=== PATIENT | female | born 1975 | race Caucasian/White ===

== ENCOUNTER 2022-06-28 16:49 | Emergency (ER) | payer BC ==
[2022-06-28] MEDS ORDERED: Lorazepam 2 MG/ML VIAL ONE ×2 (17:29→19:51)
[2022-06-28] MEDS ORDERED: Ondansetron PF 4 MG/2 ML Vial ONE (17:29)
[2022-06-28 17:45] LABS: #Basophils 0.1 10x3/uL (0.0-0.2); #Eosinphils 0.7 10x3/uL (0.0-0.5); #Monocytes 0.5 10x3/uL (0.0-1.1); #Neutrophils 6.9 10x3/uL (1.5-8.4); %Basophils 0.6 % (0.0-2.0); %Eosinophils 7.5 % (0.0-6.0); %Lymphocytes 15.5 % (18.0-47.0); %Monocytes 5.2 % (0.0-10.0); %Neutrophils 70.8 % (40.0-75.0); Hemoglobin 14.5 g/dL (12.0-15.5); Mean Corpuscular HGB CONC 33.2 g/dL (32.0-36.0); Mean Corpuscular Hemoglobin 29.3 pg (27.0-33.0); Mean Corpuscular Volume 88.3 fl (81.6-98.3); Mean Platelet Volume 10.2 fl (7.4-10.4); Platelet Count 311 10x3/uL (150-450); RBC Distribution Width 13.2 % (11.5-14.5); Red Blood Cell (RBC) Count 4.95 10x6/uL (3.90-5.03); White Blood Cell (WBC) Count 9.7 10x3/uL (3.5-10.5)
[2022-06-28 18:03] LABS: ALT (SGPT) 23 U/L (8-55); AST (SGOT) 30 U/L (5-34); Albumin 4.1 g/dL (3.5-5.0); Alkaline Phosphatase 64 U/L (40-110); Anion Gap 17 mmol/L (10-20); BUN (Urea Nitrogen) 16 mg/dL (7.0-18.7); Bilirubin, Total 0.4 mg/dL (0.2-1.2); Calc. Creatinine Clearance 0 mL/min (70-130); Calcium 9.6 mg/dL (7.8-10.44); Carbon Dioxide 22 mmol/L (22-29); Chloride 102 mmol/L (98-107); Estimated GFR 101; Globulin 4.6 g/dL (2.4-3.5); Glucose 269 mg/dL (70-105); Magnesium 1.7 mg/dL (1.6-2.6); Potassium 4.8 mmol/L (3.5-5.1); Protein, Total 8.7 g/dL (6.0-8.3); Sodium 136 mmol/L (136-145)
[2022-06-28 20:30] LABS: Troponin I Less than 0.010 ng/mL (< 0.028)
== END 2022-06-28 20:42 | disposition home or self-care (01) ==
LOC: CSHERS 16:49
DX: R00.2 Palpitations (principal); E11.9 Type 2 diabetes mellitus without complications
CPT/HCPCS: 36415; 36416; 71045; 80053; 83735; 84443; 84484; 85025; 85379; 93005; 96361; 96374; 96375; 96376; J2060; J2405

== ENCOUNTER 2022-12-30 15:25 | Emergency (ER) | payer BC ==
[2022-12-30] MEDS ORDERED: Ondansetron ODT 4 MG TAB ONE (15:47)
[2022-12-30 17:27] LABS: ALT (SGPT) 52 U/L (8-55); AST (SGOT) 43 U/L (5-34); Albumin 4.7 g/dL (3.5-5.0); Alkaline Phosphatase 58 U/L (40-110); Anion Gap 19 mmol/L (10-20); BUN (Urea Nitrogen) 15 mg/dL (7.0-18.7); Bilirubin, Total 0.9 mg/dL (0.2-1.2); Calc. Creatinine Clearance 0 mL/min (70-130); Calcium 9.3 mg/dL (7.8-10.44); Carbon Dioxide 22 mmol/L (22-29); Chloride 98 mmol/L (98-107); Estimated GFR 93; Globulin 4.4 g/dL (2.4-3.5); Glucose 243 mg/dL (70-105); Lipase 14 U/L (8-78); Magnesium 1.8 mg/dL (1.6-2.6); Potassium 3.8 mmol/L (3.5-5.1); Protein, Total 9.1 g/dL (6.0-8.3); Sodium 135 mmol/L (136-145)
[2022-12-30 17:30] LABS: #Monocytes 0.3 10x3/uL (0.0-1.1); #Neutrophils 8.8 10x3/uL (1.5-8.4); %Basophils 0.4 % (0.0-2.0); %Eosinophils 0.1 % (0.0-6.0); %Lymphocytes 10.1 % (18.0-47.0); %Monocytes 2.5 % (0.0-10.0); %Neutrophils 86.5 % (40.0-75.0); Hematocrit 47.9 % (34.9-44.5); Mean Corpuscular HGB CONC 33.4 g/dL (32.0-36.0); Mean Corpuscular Hemoglobin 29.3 pg (27.0-33.0); Mean Corpuscular Volume 87.6 fl (81.6-98.3); Platelet Count 292 10x3/uL (150-450); RBC Distribution Width 12.9 % (11.5-14.5); Red Blood Cell (RBC) Count 5.47 10x6/uL (3.90-5.03); White Blood Cell (WBC) Count 10.2 10x3/uL (3.5-10.5)
[2022-12-30] MEDS ORDERED: Metoclopramide HCl 10 MG/2 ML VIAL ONE (17:57)
[2022-12-30 18:08] LABS: SARS-CoV-2 NAA Rapid Test Not Detected (NotDetected)
[2022-12-30 18:16] LABS: Bilirubin Neg (Negative); Blood, Urine Negative (Negative); Clarity Clear (Clear); Glucose, Urine (Dipstick) 250 mg/dL (Negative); Ketone, Urine 150 mg/dL (Negative); Leukocyte Negative (Negative); Nitrite Negative (Negative); Protein, Urine (Dipstick) 30 mg/dl (Neg-Trace); Urobilinogen Normal mg/dL (Less than 2)
[2022-12-30 18:18] LABS: Pregnancy Test - Urine (BHCG) Negative (Negative); Pregu Control Background? CLEAR/WHITE (CLR/WHITE); Pregu Control Bar Appear? YES (CONTROL BAR)
[2022-12-30 18:24] LABS: CAUTI Indications for Culture Pelvic or flank pain; Mucous/LPF 2+ LPF (<2+); RBC/HPF None Seen HPF (0-3); WBC/HPF 0-3 HPF (0-3)
[2022-12-30 18:25] LABS: Bacteria/HPF Rare-Few HPF (None Seen)
[2022-12-30 18:27] LABS: Urine Culture Reflex No No
[2022-12-30 19:51] LABS: Lactic Acid 1.5 mmol/L (0.5-2.2)
== END 2022-12-30 20:14 | disposition home or self-care (01) ==
LOC: CSHERS 15:25
DX: A08.4 Viral intestinal infection, unspecified (principal); E86.0 Dehydration; E11.9 Type 2 diabetes mellitus without complications; Z20.822 Contact with and (suspected) exposure to COVID-19
CPT/HCPCS: 36415; 80053; 81001; 81025; 83605; 83690; 83735; 85025; 96361; 96365; J2765; Q0162

== ENCOUNTER 2024-12-04 08:30 | Emergency (ER) | payer BC ==
[2024-12-04 09:07] LABS: #Basophils 0.05 10x3/uL (0.0-0.2); #Eosinophils 0.12 10x3/uL (0.0-0.5); #Monocytes 0.69 10x3/uL (0.0-1.1); #Neutrophils 4.81 10x3/uL (1.5-8.4); %Basophils 0.7 % (0.0-2.0); %Eosinophils 1.7 % (0.0-6.0); %Lymphocytes 20.0 % (18.0-47.0); %Monocytes 9.7 % (0.0-10.0); %Neutrophils 67.6 % (40.0-75.0); Hematocrit 40.7 % (34.9-44.5); Hemoglobin 13.3 g/dL (12.0-15.5); Mean Corpuscular Hemoglobin 30.0 pg (27.0-33.0); Mean Corpuscular Volume 91.9 fL (81.6-98.3); Platelet Count 196 10x3/uL (150-450); Red Blood Cell (RBC) Count 4.43 10x6/uL (3.90-5.03); White Blood Cell (WBC) Count 7.11 10x3/uL (3.5-10.5)
[2024-12-04 09:28] LABS: ALT (SGPT) 782 U/L (Less than 34); AST (SGOT) 284 U/L (11-34); Albumin 3.4 g/dL (3.1-4.5); Alkaline Phosphatase 151 U/L (40-110); Anion Gap 7 mmol/L (10-20); BUN (Urea Nitrogen) 12 mg/dL (7.0-18.7); Bilirubin, Total 0.4 mg/dL (0.3-1.2); Calc. Creatinine Clearance 0 mL/min (70-130); Calcium 8.5 mg/dL (7.8-10.44); Carbon Dioxide 29 mmol/L (22-29); Chloride 103 mmol/L (98-107); Globulin 3.2 g/dL (2.4-3.5); Glucose 186 mg/dL (70-105); Lipase 28 U/L (8-78); Magnesium 1.9 mg/dL (1.6-2.6); Potassium 4.2 mmol/L (3.5-5.1); Sodium 135 mmol/L (136-145)
[2024-12-04 09:34] LABS: Troponin I Less than 0.010 ng/mL (< 0.028)
[2024-12-04 16:37] LABS: Hep B Surf Ag Reflx Confirmation S/CO (NonReactive)
[2024-12-04 23:52] LABS: Hep A IgM AB NONREACTIVE (NonReactive); Hep A IgM S/CO 0.14 S/CO (0-0.79); Hep B Core IgM Index 58.87 S/CO (0-0.79); Hep C IgG Ab NONREACTIVE S/CO (NonReactive); Hep C Index 0.13 S/CO (0-0.79)
[2024-12-08 03:13] LABS: Hep B Surface AG-Rflx Sendout Confirm. indicated (Negative)
== END 2024-12-04 13:14 ==
LOC: CSHERS 08:30
DX: R74.01 Elevation of levels of liver transaminase levels (principal); R60.9 Edema, unspecified; E11.9 Type 2 diabetes mellitus without complications; Z79.85 Long-term (current) use of injectable non-insulin antidiabetic drugs
CPT/HCPCS: 76705; 80053; 80074; 83605; 83690; 83735; 84484; 85025; 87340; 93005

== ENCOUNTER 2024-12-15 11:58 | Inpatient (IN) | payer BC ==
[2024-12-15 12:38] LABS: #Basophils 0.06 10x3/uL (0.0-0.2); #Eosinophils 0.04 10x3/uL (0.0-0.5); #Monocytes 0.61 10x3/uL (0.0-1.1); #Neutrophils 2.86 10x3/uL (1.5-8.4); %Basophils 1.3 % (0.0-2.0); %Eosinophils 0.9 % (0.0-6.0); %Lymphocytes 21.7 % (18.0-47.0); %Monocytes 13.3 % (0.0-10.0); %Neutrophils 62.6 % (40.0-75.0); Hematocrit 42.5 % (34.9-44.5); Hemoglobin 13.7 g/dL (12.0-15.5); Mean Corpuscular Hemoglobin 29.8 pg (27.0-33.0); Mean Corpuscular Volume 92.4 fL (81.6-98.3); Platelet Count 188 10x3/uL (150-450); Red Blood Cell (RBC) Count 4.60 10x6/uL (3.90-5.03); White Blood Cell (WBC) Count 4.57 10x3/uL (3.5-10.5)
[2024-12-15 12:53] LABS: Glucose, Urine (Dipstick) Normal (Negative); Leukocyte 25 (Negative); Protein, Urine (Dipstick) 30 mg/dl (Neg-Trace); Specific Gravity, Urine 1.025 (1.005-1.030)
[2024-12-15 13:07] LABS: ALT (SGPT) 1642 U/L (Less than 34); AST (SGOT) 1063 U/L (11-34); Albumin 3.4 g/dL (3.1-4.5); Alkaline Phosphatase 156 U/L (40-110); Anion Gap 9 mmol/L (10-20); BUN (Urea Nitrogen) 11 mg/dL (7.0-18.7); Bilirubin, Total 5.3 mg/dL (0.3-1.2); Calc. Creatinine Clearance 0 mL/min (70-130); Calcium 8.8 mg/dL (7.8-10.44); Carbon Dioxide 30 mmol/L (22-29); Chloride 102 mmol/L (98-107); Globulin 3.8 g/dL (2.4-3.5); Glucose 137 mg/dL (70-105); INR-International Normal Ratio 1.1; Lipase 19 U/L (8-78); PTT 25.9 sec (22.0-33.0); Potassium 3.3 mmol/L (3.5-5.1); Prothrombin Time 12.4 sec (9.5-12.1); Sodium 138 mmol/L (136-145)
[2024-12-15 13:37] LABS: Bacteria/HPF Rare-Few HPF (None Seen); CAUTI Indications for Culture Pelvic or flank pain; RBC/HPF 0-3 HPF (0-3); Urine Culture Reflex No No; WBC/HPF 0-3 HPF (0-3)
[2024-12-15 14:27] LABS: Acetaminophen Less than 10 mcg/mL (Less than 10); Salicylate Less than 8.0 mg/dL (Less than 8.0)
[2024-12-15 14:34] LABS: Hep B Surf Ag Reflx Confirmation S/CO (NonReactive)
[2024-12-15] MEDS ORDERED: Ondansetron PF 4 MG/2 ML Vial IVP PRN (15:11)
[2024-12-15] MEDS ORDERED: Bisacodyl 10 MG SUPP PR PRN (15:11)
[2024-12-15] MEDS ORDERED: Calcium Carbonate 500 MG ChewTAB PO PRN (15:11)
[2024-12-15] MEDS ORDERED: Senokot S 8.6-50 MG TAB PO PRN (15:11)
[2024-12-15 15:14] LABS: Cocaine Metabolite Screen Negative (Negative); THC/Cannabinoid Screen PRELIM POSITIVE (Negative); Tricyclic Screen Negative (Negative)
[2024-12-15] MEDS ORDERED: Ondansetron PF 4 MG/2 ML Vial ONE (16:04)
[2024-12-15 16:06] LABS: Syphilis Antibody Index 0.31 S/CO (<1.00 Non-Reactive)
[2024-12-15 16:16] LABS: HIV (1/2) Antibody/Antigen Non-Reactive (NonReactive); HIV 1/2 INDEX 0.14 S/CO (<1.00)
[2024-12-15] MEDS ORDERED: Dextrose 50% Abboject 50 ML SYRINGE SLOW IVP PRN (19:17)
[2024-12-15] MEDS ORDERED: Glucagon 1 MG/ML KIT IM PRN (19:17)
[2024-12-15 22:00] VITALS: BMI 34.2
[2024-12-16 05:06] LABS: #Basophils 0.04 10x3/uL (0.0-0.2); #Eosinophils 0.10 10x3/uL (0.0-0.5); #Monocytes 0.58 10x3/uL (0.0-1.1); #Neutrophils 2.14 10x3/uL (1.5-8.4); %Basophils 1.0 % (0.0-2.0); %Eosinophils 2.5 % (0.0-6.0); %Lymphocytes 29.7 % (18.0-47.0); %Monocytes 14.2 % (0.0-10.0); %Neutrophils 52.4 % (40.0-75.0); Hematocrit 34.4 % (34.9-44.5); Hemoglobin 11.3 g/dL (12.0-15.5); Mean Corpuscular Hemoglobin 30.3 pg (27.0-33.0); Mean Corpuscular Volume 92.2 fL (81.6-98.3); Platelet Count 143 10x3/uL (150-450); Red Blood Cell (RBC) Count 3.73 10x6/uL (3.90-5.03); White Blood Cell (WBC) Count 4.08 10x3/uL (3.5-10.5)
[2024-12-16 05:11] LABS: INR-International Normal Ratio 1.2; Prothrombin Time 13.0 sec (9.5-12.1)
[2024-12-16 05:17] LABS: ALT (SGPT) 1260 U/L (Less than 34); AST (SGOT) 919 U/L (11-34); Albumin 2.5 g/dL (3.1-4.5); Alkaline Phosphatase 115 U/L (40-110); Anion Gap 8 mmol/L (10-20); BUN (Urea Nitrogen) 7 mg/dL (7.0-18.7); Bilirubin, Total 4.5 mg/dL (0.3-1.2); Calc. Creatinine Clearance 216 mL/min (70-130); Calcium 7.6 mg/dL (7.8-10.44); Carbon Dioxide 26 mmol/L (22-29); Chloride 109 mmol/L (98-107); Globulin 3.0 g/dL (2.4-3.5); Glucose 80 mg/dL (70-105); Potassium 3.7 mmol/L (3.5-5.1); Sodium 139 mmol/L (136-145)
[2024-12-16] MEDS: Ibuprofen 200 MG TAB PO PRN (11:34)
[2024-12-16] MEDS ORDERED: diphenhydrAMINE 25 MG CAP PO SCH (21:00)
[2024-12-17 00:39] LABS: GC N.gonorrhoeae PCR,UrineVOID Not Detected (NotDetected)
[2024-12-17 09:36] LABS: #Basophils 0.05 10x3/uL (0.0-0.2); #Eosinophils 0.06 10x3/uL (0.0-0.5); #Monocytes 0.45 10x3/uL (0.0-1.1); #Neutrophils 2.54 10x3/uL (1.5-8.4); %Basophils 1.3 % (0.0-2.0); %Eosinophils 1.6 % (0.0-6.0); %Lymphocytes 19.0 % (18.0-47.0); %Monocytes 11.7 % (0.0-10.0); %Neutrophils 66.1 % (40.0-75.0); Hematocrit 40.8 % (34.9-44.5); Hemoglobin 13.3 g/dL (12.0-15.5); Mean Corpuscular Hemoglobin 30.0 pg (27.0-33.0); Mean Corpuscular Volume 91.9 fL (81.6-98.3); Platelet Count 154 10x3/uL (150-450); Red Blood Cell (RBC) Count 4.44 10x6/uL (3.90-5.03); White Blood Cell (WBC) Count 3.84 10x3/uL (3.5-10.5)
[2024-12-17 09:38] LABS: ALT (SGPT) 1492 U/L (Less than 34); AST (SGOT) 1167 U/L (11-34); Albumin 3.0 g/dL (3.1-4.5); Alkaline Phosphatase 145 U/L (40-110); Anion Gap 8 mmol/L (10-20); BUN (Urea Nitrogen) 6 mg/dL (7.0-18.7); Bilirubin, Total 6.9 mg/dL (0.3-1.2); Calc. Creatinine Clearance 240 mL/min (70-130); Calcium 8.2 mg/dL (7.8-10.44); Carbon Dioxide 28 mmol/L (22-29); Chloride 105 mmol/L (98-107); Globulin 3.7 g/dL (2.4-3.5); Glucose 146 mg/dL (70-105); Potassium 3.8 mmol/L (3.5-5.1); Sodium 137 mmol/L (136-145)
[2024-12-17 14:40] LABS: Hep C Index 0.16 S/CO (0-0.79)
[2024-12-17 14:41] LABS: Hep C IgG Ab NONREACTIVE S/CO (NonReactive)
[2024-12-17 14:42] LABS: Hep A IgM AB NONREACTIVE (NonReactive); Hep A IgM S/CO 0.15 S/CO (0-0.79)
[2024-12-17 15:22] LABS: Hep B Core IgM Index 57.33 S/CO (0-0.79)
[2024-12-17] MEDS: Melatonin 3 MG TAB PO PRN (23:36)
[2024-12-18 00:25] LABS: Hep B Surface AG-Rflx Sendout Confirm. indicated (Negative)
[2024-12-18 05:58] LABS: ALT (SGPT) 1302 U/L (Less than 34); AST (SGOT) 949 U/L (11-34); Albumin 2.7 g/dL (3.1-4.5); Alkaline Phosphatase 139 U/L (40-110); Anion Gap 12 mmol/L (10-20); BUN (Urea Nitrogen) 5 mg/dL (7.0-18.7); Bilirubin, Total 6.1 mg/dL (0.3-1.2); Calc. Creatinine Clearance 245 mL/min (70-130); Calcium 7.9 mg/dL (7.8-10.44); Carbon Dioxide 24 mmol/L (22-29); Chloride 107 mmol/L (98-107); Globulin 3.4 g/dL (2.4-3.5); Glucose 92 mg/dL (70-105); Potassium 3.5 mmol/L (3.5-5.1); Sodium 139 mmol/L (136-145)
[2024-12-18 06:09] LABS: Platelet Count 135 10x3/uL (150-450)
[2024-12-18 06:13] LABS: #Basophils 0.05 10x3/uL (0.0-0.2); #Eosinophils 0.10 10x3/uL (0.0-0.5); #Monocytes 0.67 10x3/uL (0.0-1.1); #Neutrophils 2.28 10x3/uL (1.5-8.4); %Basophils 1.1 % (0.0-2.0); %Eosinophils 2.3 % (0.0-6.0); %Lymphocytes 28.7 % (18.0-47.0); %Monocytes 15.4 % (0.0-10.0); %Neutrophils 52.3 % (40.0-75.0); Hematocrit 35.1 % (34.9-44.5); Hemoglobin 12.0 g/dL (12.0-15.5); Mean Corpuscular Hemoglobin 30.4 pg (27.0-33.0); Mean Corpuscular Volume 88.9 fL (81.6-98.3); Red Blood Cell (RBC) Count 3.95 10x6/uL (3.90-5.03); White Blood Cell (WBC) Count 4.36 10x3/uL (3.5-10.5)
[2024-12-19 05:41] LABS: Platelet Count 132 10x3/uL (150-450)
[2024-12-19 05:42] LABS: #Basophils 0.05 10x3/uL (0.0-0.2); #Eosinophils 0.13 10x3/uL (0.0-0.5); #Monocytes 0.71 10x3/uL (0.0-1.1); #Neutrophils 2.68 10x3/uL (1.5-8.4); %Basophils 1.1 % (0.0-2.0); %Eosinophils 2.7 % (0.0-6.0); %Lymphocytes 24.5 % (18.0-47.0); %Monocytes 15.0 % (0.0-10.0); %Neutrophils 56.5 % (40.0-75.0); Hematocrit 36.3 % (34.9-44.5); Hemoglobin 12.2 g/dL (12.0-15.5); Mean Corpuscular Hemoglobin 30.0 pg (27.0-33.0); Mean Corpuscular Volume 89.2 fL (81.6-98.3); Red Blood Cell (RBC) Count 4.07 10x6/uL (3.90-5.03); White Blood Cell (WBC) Count 4.74 10x3/uL (3.5-10.5)
[2024-12-19 05:52] LABS: ALT (SGPT) 1288 U/L (Less than 34); AST (SGOT) 968 U/L (11-34); Albumin 2.6 g/dL (3.1-4.5); Alkaline Phosphatase 139 U/L (40-110); Anion Gap 12 mmol/L (10-20); BUN (Urea Nitrogen) 5 mg/dL (7.0-18.7); Bilirubin, Total 7.5 mg/dL (0.3-1.2); Calc. Creatinine Clearance 216 mL/min (70-130); Calcium 7.9 mg/dL (7.8-10.44); Carbon Dioxide 24 mmol/L (22-29); Chloride 107 mmol/L (98-107); Globulin 3.4 g/dL (2.4-3.5); Glucose 97 mg/dL (70-105); Potassium 3.9 mmol/L (3.5-5.1); Sodium 139 mmol/L (136-145)
[2024-12-19 08:25] VITALS: BP 113/58; TEMP 98.1
== END 2024-12-19 11:42 | disposition home or self-care (01) | DRG 443 ==
LOC: CSHERS 11:58 → CSHERHOLD 15:08 → CSHTELE 19:55
PROVIDERS: ADMIT Family Medicine; ATTEND Internal Medicine
DX: B16.9 Acute hepatitis B without delta-agent and without hepatic coma (principal); E66.9 Obesity, unspecified; E11.9 Type 2 diabetes mellitus without complications; Z79.899 Other long term (current) drug therapy; E87.6 Hypokalemia; F41.9 Anxiety disorder, unspecified; Z68.34 Body mass index [BMI] 34.0-34.9, adult
CPT/HCPCS: 36415; 36416; 76705; 80053; 80074; 80306; 80307; 81001; 83036; 83690; 85025; 85610; 85730; 86780; 87340; 87389; 87591; 96374; 96375; J2060; J7030